=== PATIENT | female | born 1965 | race Caucasian/White ===

== ENCOUNTER → 2018-04-19 | Outpatient (CLI) | payer OTHER ==
[~2018-04-19] MED LIST: ASCO500 PO; CALCIT950 PO; CHOL10002 PO; CYCL10 PO; ESTRADIOL1 MG PO; FISH1000 PO; HYDR1TAB94 PO; IBUP800 PO; LEVSOD100; LEVSOD100 PO; LEVSOD150 PO; MELO7.5 PO; MULVITMINE PO; TOCO400 PO
[2018-04-21 15:08] LABS: HPV 16 Negative (Negative); HPV 18 Negative (Negative); HPV OTHER HR TYPES Negative (Negative)
== END ==
LOC: LAB 17:40 → LAB SHORT 17:40
PROVIDERS: Obstetrics & Gynecology Gynecology
DX: Z12.72 Encounter for screening for malignant neoplasm of vagina (principal)
CPT/HCPCS: 87624; G0123

== ENCOUNTER → 2019-05-05 | Outpatient (CLI) | payer OTHER ==
[2019-05-08 14:06] LABS: HPV 16 Negative (Negative); HPV 18 Negative (Negative); HPV OTHER HR TYPES Negative (Negative)
== END | disposition home or self-care (01) ==
LOC: LAB 09:21 → LAB SHORT 09:21
PROVIDERS: Obstetrics & Gynecology Gynecology
DX: Z12.72 Encounter for screening for malignant neoplasm of vagina (principal)
CPT/HCPCS: 87624; G0123

== ENCOUNTER 2019-06-27 13:54 | Day surgery (SDC) | payer OTHER ==
[~2019-06-27] VITALS: Ht 165.1 cm; Wt 87.5 kg
[~2019-06-27 13:54] MED LIST changes: +Calcium 600 +1 EAC1 PO; +Fish Oil Conce1 EACH PO; +IBUP600 PO; +Natural Vita400 UNIT PO; +Synthroid137 MCG PO; +TRAZ50 PO; +VITAMIN D35000 UNIT PO
--- NOTE | 2019-06-27 15:53 | NUR ---
06/27/19 1553 Janey Yee A CATHETER INSERTED DURING SURGERY BY SURGEON AND TAKEN OUT AT END OF SURGERY.
--- NOTE | 2019-06-27 16:45 | NUR ---
06/27/19 1645 Shabana DominguezRosy UPON ARRIVAL TO STEPDOWN, PT DENIES PAIN OR NAUSEA. DISPOSABLE BRIEFS AND FRESH ESME-PAD PLACED. PT UP TO RECLINER WITH SUDDEN ONSET NAUSEA. PT MEDICATED WITH 4MG ZOFRAN IVP PER ORDERS. PT SWADDLED IN WARM BLANKETS POST COMPLAINT OF COLD & SHIVERING. PT TOLERATING PO INTAKE WELL. PT STATES NAUSEA HAS RESOLVED. CONTINUES TO DENY PAIN AT THIS TIME. FAMILY AT BEDSIDE, CALL LIGHT WITHIN REACH. REPORT GIVEN TO [email or web address] AT THIS TIME.
== END 2019-06-27 19:55 | disposition home or self-care (01) ==
LOC: ORSCSDS 13:54
PROVIDERS: Obstetrics & Gynecology Gynecology
PROC: 0TSD0ZZ Reposition Urethra, Open Approach (ICD-10-PCS; principal; 2019-06-27 15:00)
DX: N39.3 Stress incontinence (female) (male) (principal); E03.9 Hypothyroidism, unspecified; Z79.899 Other long term (current) drug therapy
CPT/HCPCS: C1771; J0690; J1100; J2250; J2405; J2704; J7120

== ENCOUNTER 2020-06-03 07:18 | Day surgery (SDC) | payer OTHER ==
[2020-06-05 14:42] LABS: Performing Lab SYMBIODX; Test Name HER2 FISH
== END 2020-06-03 12:00 | disposition home or self-care (01) ==
LOC: MOI US 07:18 → MOI MAM 08:00 → MOI US 08:00
PROVIDERS: Nurse Practitioner Women's Health
DX: C50.811 Malignant neoplasm of overlapping sites of right female breast (principal); E03.9 Hypothyroidism, unspecified; Z17.0 Estrogen receptor positive status [ER+]; Z90.710 Acquired absence of both cervix and uterus; Z98.51 Tubal ligation status; Z88.5 Allergy status to narcotic agent; Z88.6 Allergy status to analgesic agent; Z88.8 Allergy status to other drugs, medicaments and biological substances; Z91.040 Latex allergy status; Z91.09 Other allergy status, other than to drugs and biological substances; Z87.891 Personal history of nicotine dependence; Z79.899 Other long term (current) drug therapy
CPT/HCPCS: 19083; 77065; 88305; 88360; A4648

== ENCOUNTER 2020-07-08 06:10 | Day surgery (SDC) | payer OTHER ==
[~2020-07-08] VITALS: Ht 165.1 cm; Wt 76.5 kg
[2020-07-08] MEDS ORDERED: Multivitamins1 EAC6 PO (06:33)
--- NOTE | 2020-07-08 06:59 | NUR ---
History, Chart, Medications and Allergies reviewed before start of procedure. Patient confirms NPO status and agrees with scheduled surgery. Patient States Post-Procedure ride home has been arranged with her .
--- NOTE | 2020-07-08 09:35 | NUR ---
Discharge instructions reviewed with patient. Patient verbalizes understanding. Copy given to patient to take home. DRG TO LEFT CHEST C/D/I. STERI STRIP C/D/I TO LEFT NECK. PT TOLERATED COFFEE WELL. DENIES NEED FOR CRACKERS OR ANYTHING TO EAT. VSS. Discharged via wheelchair to private car for ride home.
== END 2020-07-08 09:30 | disposition home or self-care (01) ==
LOC: ORD 06:10 → ORSCMMR 06:10 → ORD 07:30
PROVIDERS: Surgery
PROC: 05HN33Z Insertion of Infusion Device into Left Internal Jugular Vein, Percutaneous Approach (ICD-10-PCS; principal; 2020-07-08 07:30)
PROC: B5141ZA Fluoroscopy of Left Jugular Veins using Low Osmolar Contrast, Guidance (ICD-10-PCS; principal; 2020-07-08 07:30)
DX: C50.911 Malignant neoplasm of unspecified site of right female breast (principal); Z17.0 Estrogen receptor positive status [ER+]; E03.9 Hypothyroidism, unspecified; Z79.899 Other long term (current) drug therapy
CPT/HCPCS: 77001; A9270-GY; C1788; J0690; J1100; J1200; J1642; J2250; J2405; J2704; J3010; J7120

== ENCOUNTER 2020-10-11 17:21 | Emergency (ER) | payer OTHER ==
[~2020-10-11] VITALS: Ht 165.1 cm; Wt 84.8 kg
[~2020-10-11 17:21] MED LIST changes: +Multivitamins1 EAC6 PO
[2020-10-11 17:58] LABS: Hematocrit 39.9 % (33.0-51.0); Hemoglobin 13.1 g/dL (11.5-16.0); Mean Corpuscular HGB 32.8 pg (26.0-34.0); Mean Corpuscular HGB Conc 32.8 g/dL (31.5-36.5); Mean Corpuscular Volume 100 fL (80-100); Mean Platelet Volume 10.1 fL (9.1-12.4); NRBC ABSOLUTE 0.03 K/mm3 (0.00-0.02); NRBC Auto 0.2 /100 WBC (0.0-0.2); Platelet Count 289 K/mm3 (150-400); RDW Coefficient Variation 14.6 % (11.7-14.2); White Blood Cell Count 19.26 K/mm3 (4.00-11.30)
[2020-10-11 18:18] LABS: Alanine Aminotransfer (ALT/SGP 93 U/L (12-78); Albumin, Blood 3.8 g/dL (3.4-5.0); Albumin/Globulin Ratio 1.1 (0.8-1.8); Alk Phos 133 U/L (50-136); Anion Gap 3 mmol/L (6-16); Aspartate Aminotrans (AST/SGOT 36 U/L (12-37); Bilirubin, Total 0.1 mg/dL (0.1-1.0); Blood Urea Nitrogen 19 mg/dL (8-24); Bun/Creatinine Ratio 21.9 (12.0-20.0); CO2, Blood 29 mmol/L (21-32); Calcium, Blood 9.2 mg/dL (8.5-10.1); Chloride, Blood 109 mmol/L (98-108); Creatinine, Blood 0.87 mg/dL (0.40-1.00); Globulin, Blood 3.4 g/dL (2.2-4.0); Glomerular Filtration Rate >60 (60-); Glucose, Blood 91 mg/dL (70-99); Potassium, Blood 4.2 mmol/L (3.5-5.5); Sodium, Blood 141 mmol/L (136-145); Total Protein, Blood 7.2 g/dL (6.4-8.2)
[2020-10-11 18:28] LABS: BAND PERCENT MAN 3 % (0-8); BASOPHILS PERCENT MAN 0 % (0-2); EOSINOPHILS PERCENT MAN 0 % (0-6); LYMPHOCYTES ABSOLUTE MAN 2.31 K/mm3 (0.84-5.20); LYMPHOCYTES PERCENT MAN 12 % (21-46); METAMYELOCYTE ABSOLUTE MAN 0.38 K/mm3 (0.00-0.00); METAMYELOCYTE PERCENT MAN 2 % (0-0); MONOCYTES ABSOLUTE MAN 0.57 K/mm3 (0.16-1.47); MONOCYTES PERCENT MAN 3 % (4-13); MYELOCYTE ABSOLUTE MAN 0.57 K/mm3 (0.00-0.00); MYELOCYTE PERCENT MAN 3 % (0-0); NEUTROPHILS ABSOLUTE MAN 14.83 K/mm3 (1.96-9.15); PROMYELOCYTE ABSOLUTE MAN 0.57 K/mm3 (0.00-0.00); PROMYELOCYTE PERCENT MAN 3 % (0-0); SEG NEUTROPHILS PERCENT MAN 74 % (41-73); TOTAL CELLS COUNTED 100
[2020-10-11] MEDS ORDERED: Amoxicillin500 MG PO (19:59)
[2020-10-11] MEDS ORDERED: ONDA4ODT SL (19:59)
[2020-10-11] MEDS ORDERED: HYDMOR2 PO (19:59)
== END 2020-10-11 20:11 | disposition home or self-care (01) ==
LOC: ER 17:21
PROVIDERS: Physician Assistant
DX: R51.9 Headache, unspecified (principal); C50.919 Malignant neoplasm of unspecified site of unspecified female breast; E03.9 Hypothyroidism, unspecified; Z88.8 Allergy status to other drugs, medicaments and biological substances; Z92.21 Personal history of antineoplastic chemotherapy; Z79.899 Other long term (current) drug therapy
CPT/HCPCS: 36415; 64450; 70360; 80053; 85025; 96365-59; 96375-59; 99283-25; J0696; J1170; J2405

== ENCOUNTER 2020-11-25 08:46 | Day surgery (SDC) | payer OTHER ==
[~2020-11-25 08:46] MED LIST changes: +Amoxicillin500 MG PO; +HYDMOR2 PO; +ONDA4ODT SL
== END 2020-11-25 22:43 | disposition home or self-care (01) ==
LOC: MOI US 08:46
DX: C50.411 Malignant neoplasm of upper-outer quadrant of right female breast (principal); Z17.0 Estrogen receptor positive status [ER+]
CPT/HCPCS: 19285; 77065; A4648

== ENCOUNTER 2020-11-27 10:04 | Day surgery (SDC) | payer OTHER ==
[~2020-11-27] VITALS: Ht 165.1 cm; Wt 87.8 kg
[2020-11-27] MEDS ORDERED: OMEP20ER PO (10:56)
--- NOTE | 2020-11-27 11:10 | NUR ---
Ambulatory in Day Surgery History, Chart, Medications and Allergies reviewed before start of procedure.Patient confirms NPO status and agrees with scheduled surgery. Patient reports completing Chlorhexadine shower X2 prior to admission to hospital.Surgical site prepped with 2% Chlorhexidine cloth wipe. Lungs clear T/O to Auscultation. Patient States Post-Procedure ride home has been arranged WITH
--- NOTE | 2020-11-27 15:40 | NUR ---
Patient up to Ambulate independently. Gait steady. Discharge instructions reviewed with patient. Patient verbalizes understanding. Copy given to patient to take home. Dressing to procedure site clean, dry, intact with no visible drainage, swelling, erythema or bruising noted. Discharged via wheelchair to private car for ride home with family giving pt ride home.
== END 2020-11-27 15:40 | disposition home or self-care (01) ==
LOC: NM 10:04 → ORSCMMR 10:04 → NM 10:30
PROVIDERS: Surgery
PROC: 0HBT0ZZ Excision of Right Breast, Open Approach (ICD-10-PCS; principal; 2020-11-27 11:30)
PROC: 07B50ZX Excision of Right Axillary Lymphatic, Open Approach, Diagnostic (ICD-10-PCS; principal; 2020-11-27 11:30)
DX: C50.411 Malignant neoplasm of upper-outer quadrant of right female breast (principal); Z17.0 Estrogen receptor positive status [ER+]; C77.3 Secondary and unspecified malignant neoplasm of axilla and upper limb lymph nodes; E03.9 Hypothyroidism, unspecified; K21.9 Gastro-esophageal reflux disease without esophagitis; Z79.899 Other long term (current) drug therapy
CPT/HCPCS: 38792; 76098; A9270; A9270-GY; A9520; J0690; J1200; J1885; J2250; J2405; J2704; J3010; J7120; Q9968

== ENCOUNTER → 2024-07-21 | Outpatient (CLI) | payer OTHER ==
[~2024-07-21] MED LIST changes: +OMEP20ER PO
[2024-07-21 14:48] LABS: Adenovirus F 40/41 Not Detected (NOT DETECT); Astrovirus Not Detected (NOT DETECT); Campylobacter Sp Not Detected (NOT DETECT); Cryptosporidium Not Detected (NOT DETECT); Cyclospora Cayetanensis Not Detected (NOT DETECT); E. Coli O157 Not Detected (NOT DETECT); Entamoeba Histolytica Not Detected (NOT DETECT); Enteroaggregative E. coli-EAEC Not Detected (NOT DETECT); Enteropathogenic E. coli-EPEC Not Detected (NOT DETECT); Enterotoxigenic E. coli-ETEC Not Detected (NOT DETECT); Giardia Lamblia Not Detected (NOT DETECT); Norovirus GI/GII Not Detected (NOT DETECT); Plesiomonas Shigelloides Not Detected (NOT DETECT); Rotavirus A Not Detected (NOT DETECT); Salmonella Sp Not Detected (NOT DETECT); Sapovirus Not Detected (NOT DETECT); Shiga Toxin-prod E. coli-STEC Not Detected (NOT DETECT); Shigella/Enteroin E. coli-EIEC Not Detected (NOT DETECT); Vibrio Cholerae Not Detected (NOT DETECT); Vibrio Sp Not Detected (NOT DETECT); Yersinia Enterocolitica Not Detected (NOT DETECT)
== END ==
LOC: LAB 10:06 → LAB SHORT 10:06
PROVIDERS: Student in an Organized Health Care Education/Training Program
DX: R19.7 Diarrhea, unspecified (principal)
CPT/HCPCS: 87507

== ENCOUNTER 2024-09-15 09:34 | Day surgery (SDC) | payer OTHER ==
[~2024-09-15] VITALS: Ht 165.1 cm; Wt 86.9 kg
[2024-09-15] MEDS ORDERED: Lactated Ringer's 1,000 ML IV ONE ×2 (09:56→10:44)
[2024-09-15] MEDS ORDERED: propofoL 50 ML IV ONE (09:56)
[2024-09-15] MEDS ORDERED: PANT20 (09:59)
[2024-09-15] MEDS ORDERED: Budeprion Xl300 MG (09:59)
[2024-09-15] MEDS ORDERED: DiphenhydrAMINE HCl 50 MG/ML 1ML Vial ONE (10:56)
[2024-09-15 11:53] VITALS: BP 104/70
== END 2024-09-15 11:49 | disposition home or self-care (01) ==
LOC: ORSCSDS 09:34
PROVIDERS: Internal Medicine Gastroenterology
PROC: 0DJ08ZZ Inspection of Upper Intestinal Tract, Via Natural or Artificial Opening Endoscopic (ICD-10-PCS; principal; 2024-09-15 11:00)
DX: R13.10 Dysphagia, unspecified (principal); K21.9 Gastro-esophageal reflux disease without esophagitis; Z85.3 Personal history of malignant neoplasm of breast; Z87.891 Personal history of nicotine dependence; E03.9 Hypothyroidism, unspecified; Z79.899 Other long term (current) drug therapy
CPT/HCPCS: J1200; J2704; J7120

== ENCOUNTER 2024-09-27 08:26 | Day surgery (SDC) | payer OTHER ==
[~2024-09-27] VITALS: Ht 165.1 cm; Wt 83.9 kg
[~2024-09-27 08:26] MED LIST changes: +Budeprion Xl300 MG; +Lactated Ringer's 1,000 ML IV ONE; +PANT20; +propofoL 50 ML IV ONE
[2024-09-27] MEDS ORDERED: Lactated Ringer's 1,000 ML IV ONE (09:43)
[2024-09-27 10:54] VITALS: BP 110/74
== END 2024-09-27 10:46 | disposition home or self-care (01) ==
LOC: ORSCSDS 08:26
PROVIDERS: Internal Medicine Gastroenterology
PROC: 0DJD8ZZ Inspection of Lower Intestinal Tract, Via Natural or Artificial Opening Endoscopic (ICD-10-PCS; principal; 2024-09-27 10:00)
DX: R10.30 Lower abdominal pain, unspecified (principal); E03.9 Hypothyroidism, unspecified; Z87.891 Personal history of nicotine dependence; Z79.899 Other long term (current) drug therapy
CPT/HCPCS: J2704; J7120